=== PATIENT | male | born 1985 | race Caucasian/White ===

== ENCOUNTER 2017-09-10 19:21 | Observation (INO) | payer OTHER ==
[~2017-09-10] VITALS: Ht 172.7 cm; Wt 112.5 kg
[~2017-09-10 19:21] MED LIST: ADVI200C9 PO; AUGM875T PO; HYDR-3580 PO; HYDR12.56 PO; KCL10 PO; LIDO 2% SWISH-SWAL; METF-324 PO; VENL-37 PO
[2017-09-10 19:24] VITALS: BP 145/78; PULSE 104; RESP 16; TEMP 97.8; O2SAT 99
[2017-09-10] MEDS ORDERED: ONDANSETRON HCL 4 MG/2 ML VIAL IVP ONE (21:30)
[2017-09-10] MEDS ORDERED: SODIUM CHLORIDE 0.9% FLUSH 10 ML FLUSH IV FLUSH PRN (21:30)
--- NOTE | 2017-09-10 21:35 | PD ---
HPI Chief Complaint: Abdominal Pain Time Seen by Provider: 21:25 Travel History International Travel<30 days: No Contact w/Intl Traveler<30days: No Traveled to known affect area: No History of Present Illness HPI 32-year-old male here for evaluation of abdominal pain. The patient reports mid and epigastric abdominal pain that began this morning. Pain has progressively worsened throughout the day today and is described as cramping. Pain is currently severe and is worse with even the slightest movements. He reports having a temp of 99.7F earlier today. He has also felt nauseous but has not vomited. Last bowel movement was earlier today and was normal. No history of abdominal surgeries. He is also having some left mid and left upper quadrant discomfort described as burning. No urinary symptoms. PFSH Past Medical History Anxiety: Yes Depression: Yes Diabetes: Yes Patient Takes Glucophage: Yes (DOESN'T TAKE DAILY) Diminished Hearing: No (RINGING) Past Surgical History Oral Surgery: Yes (wisdom ) Social History Alcohol Use: Yes (occ) Tobacco Use: No Substance Use: No Allergies-Medications (Allergen,Severity, Reaction): Coded Allergies: No Known Allergies (Unverified , 09/10/17) Reported Meds & Prescriptions Reported Meds & Active Scripts Active Reported Metformin (Metformin HCl) 500 Mg Tab 500 Mg PO BIDPC Review of Systems Except as stated in HPI: all other systems reviewed are Neg Physical Exam Narrative GENERAL: Well-developed, well-nourished, overweight, no apparent distress. SKIN: Focused skin assessment warm/dry. No rash. HEAD: Atraumatic. Normocephalic. EYES: Pupils equal and round. No scleral icterus. No injection or drainage. ENT: Mucous membranes pink and moist. NECK: Trachea midline. No JVD. CARDIOVASCULAR: Regular rate and rhythm. RESPIRATORY: No accessory muscle use. Clear to auscultation. Breath sounds equal bilaterally. GASTROINTESTINAL: Abdomen soft, nondistended. Moderate periumbilical, right lower quadrant, and left lower quadrant tenderness without rebound, with mild guarding. No hernias. Normal bowel sounds. MUSCULOSKELETAL: No obvious deformities. No clubbing. No cyanosis. No edema. NEUROLOGICAL: Awake and alert. No obvious cranial nerve deficits. Motor grossly within normal limits. Normal speech. PSYCHIATRIC: Appropriate mood and affect; insight and judgment normal. Data Data Last Documented VS Vital Signs Date Time Temp Pulse Resp B/P (MAP) Pulse Ox O2 Delivery O2 Flow Rate FiO2 09/10/17 21:55 100 16 143/85 (104) 100 Room Air 09/10/17 19:24 97.8 Orders Orders Complete Blood Count With Diff (09/10/17 21:30) Comprehensive Metabolic Panel (09/10/17 21:30) Lipase (09/10/17 21:30) Prothrombin Time / Inr (Pt) (09/10/17 21:30) Act Partial Throm Time (Ptt) (09/10/17 21:30) Urinalysis - C+S If Indicated (09/10/17 21:30) Iv Access Insert/Monitor (09/10/17 21:30) Ecg Monitoring (09/10/17 21:30) Oximetry (09/10/17 21:30) Ondansetron Inj (Zofran Inj) (09/10/17 21:30) Sodium Chlor 0.9% 1000 Ml Inj (Ns 1000 M (09/10/17 21:30) Sodium Chloride 0.9% Flush (Ns Flush) (09/10/17 21:30) Ct Abd/Pel W Iv Contrast(Rout) (09/10/17 21:32) Diatrizoate Liq ( Gastroview Liq) (09/10/17 21:47) Oral Contrast - Adult (09/10/17 21:56) Iohexol 350 Inj (Omnipaque 350 Inj) (09/10/17 23:05) Piperacil-Tazo 4.5 Gm Premix (Zosyn 4.5 (09/10/17 23:45) Admit Order (Ed Use Only) (09/10/17 23:35) Diet Npo (09/11/17 Breakfast) Labs Laboratory Tests Test 09/10/17 21:35 09/10/17 21:40 Urine Color YELLOW Urine Turbidity CLEAR Urine pH 6.5 Urine Specific [place] 1.018 Urine Protein NEG mg/dL Urine Glucose (UA) NEG mg/dL Urine Ketones NEG mg/dL Urine Occult Blood NEG Urine Nitrite NEG Urine Bilirubin NEG Urine Urobilinogen LESS THAN 2.0 MG/DL Urine Leukocyte Esterase NEG Urine RBC LESS THAN 1 /hpf Urine WBC LESS THAN 1 /hpf Urine Mucus FEW /lpf Microscopic Urinalysis Comment CULT NOT INDICATED White Blood Count 13.4 TH/MM3 Red Blood Count 4.87 MIL/MM3 Hemoglobin 15.6 GM/DL Hematocrit 43.9 % Mean Corpuscular Volume 90.1 FL Mean Corpuscular Hemoglobin 31.9 PG Mean Corpuscular Hemoglobin Concent 35.5 % Red Cell Distribution Width 12.3 % Platelet Count 259 TH/MM3 Mean Platelet Volume 8.8 FL Neutrophils (%) (Auto) 65.0 % Lymphocytes (%) (Auto) 23.2 % Monocytes (%) (Auto) 9.7 % Eosinophils (%) (Auto) 1.5 % Basophils (%) (Auto) 0.6 % Neutrophils # (Auto) 8.7 TH/MM3 Lymphocytes # (Auto) 3.1 TH/MM3 Monocytes # (Auto) 1.3 TH/MM3 Eosinophils # (Auto) 0.2 TH/MM3 Basophils # (Auto) 0.1 TH/MM3 CBC Comment DIFF FINAL Differential Comment Prothrombin Time 10.7 SEC Prothromb Time International Ratio 1.0 RATIO Activated Partial Thromboplast Time 25.9 SEC Blood Urea Nitrogen 11 MG/DL Creatinine 0.86 MG/DL Random Glucose 139 MG/DL Total Protein 7.5 GM/DL Albumin 3.9 GM/DL Calcium Level 8.5 MG/DL Alkaline Phosphatase 87 U/L Aspartate Amino Transf (AST/SGOT) 14 U/L Alanine Aminotransferase (ALT/SGPT) 41 U/L Total Bilirubin 1.0 MG/DL Sodium Level 138 MEQ/L Potassium Level 3.4 MEQ/L Chloride Level 104 MEQ/L Carbon Dioxide Level 27.0 MEQ/L Anion Gap 7 MEQ/L Estimat Glomerular Filtration Rate 104 ML/MIN Lipase 102 U/L [facility] Medical Decision Making Medical Screen Exam Complete: Yes Emergency Medical Condition: Yes Differential Diagnosis Appendicitis, colitis, pancreatitis, hepatobiliary disease, UTI/cystitis Narrative Course Initial vital signs show heart rate 104, blood pressure 145/78, pulse ox 99% on room air, oral temp of 97.8 there are night. CBC shows WBC 13.4, hemoglobin 15.6, hematocrit 43.9, platelets 259. CMP is remarkable for potassium 3.4, random glucose 139, otherwise unremarkable. Lipase is 102. UA is not suggestive of UTI. CT abdomen pelvis: Findings of acute appendicitis without evidence of abscess. The patient was started on Zosyn. Case discussed with on-call general surgeon Dr. Garcia who plans to take the patient to the OR in the morning for appendectomy. Patient will be admitted to his service. Diagnosis Primary Impression: Acute appendicitis Qualified Codes: K35.3 - Acute appendicitis with localized peritonitis Admitting Information Admitting Physician Requests: Admit Chele Swift MD Sep 10, 2017 21:35
[2017-09-10] MEDS ORDERED: DIATRIZOATE MEGLUM/DIATRIZOATE SOD 9 ML CUP ONE (21:47)
[2017-09-10 21:54] LABS: AUTOMATED NEUTROPHIL # 8.7 TH/MM3 (1.8-7.7); BASOPHIL # 0.1 TH/MM3 (0-0.2); BASOPHIL % 0.6 % (0.0-2.0); EOSINOPHIL # 0.2 TH/MM3 (0-0.4); EOSINOPHIL % 1.5 % (0.0-4.0); HEMATOCRIT 43.9 % (39.0-51.0); HEMO FLAGS DIFF FINAL; LYMPH % 23.2 % (9.0-44.0); LYMPHOCYTE # 3.1 TH/MM3 (1.0-4.8); MEAN CELL VOLUME 90.1 FL (80.0-100.0); MEAN CORPUSCULAR HEMOGLOBIN 31.9 PG (27.0-34.0); MEAN CORPUSCULAR HGB CONC 35.5 % (32.0-36.0); MONO % 9.7 % (0.0-8.0); PLATELET COUNT 259 TH/MM3 (150-450); RED BLOOD COUNT 4.87 MIL/MM3 (4.50-5.90); RED CELL DISTRIBUTION WIDTH 12.3 % (11.6-17.2); WHITE BLOOD COUNT 13.4 TH/MM3 (4.0-11.0)
[2017-09-10 21:55] VITALS: BP 143/85; PULSE 100; RESP 16; O2SAT 100
[2017-09-10] MEDS: SODIUM CHLOR 0.9% 1000 ML INJ 1,000 ML IV SCH (21:55)
[2017-09-10 21:57] LABS: BLOOD, URINE NEG (NEG); COMMENT (UR) CULT NOT INDICATED; CULTURE IF INDICATED CULT NOT INDICATED; GLUCOSE,URINE NEG (NEG); KETONE, URINE NEG (NEG); MUCUS URINE FEW /lpf (OCC); NITRITE,URINE NEG (NEG); PH, URINE 6.5 (5.0-8.5); URINE COLOR YELLOW (YELLW/STRAW)
[2017-09-10] MEDS ORDERED: METF500T PO (22:07)
[2017-09-10 22:15] LABS: APTT (PATIENT) 25.9 SEC (24.3-30.1); PROTHROMBIN TIME - PATIENT 10.7 SEC (9.8-11.6)
[2017-09-10 22:17] LABS: ALT (GPT) 41 U/L (12-78); ANION GAP 7 MEQ/L (5-15); AST (GOT) 14 U/L (15-37); BLOOD UREA NITROGEN 11 MG/DL (7-18); CHLORIDE 104 MEQ/L (98-107); GLOMERULAR FILTRATION RATE 104 ML/MIN (>89); POTASSIUM 3.4 MEQ/L (3.5-5.1); SODIUM (NA) 138 MEQ/L (136-145)
[2017-09-10 22:20] LABS: ALKALINE PHOSPHATASE 87 U/L (45-117)
[2017-09-10] MEDS ORDERED: IOHEXOL 350 MG/ML 10 ML VIAL (for RAD DIAG) IVCONTRAST ONE (23:05)
--- NOTE | 2017-09-10 23:20 | RADRPT ---
EXAM DATE/TIME: 09/10/2017 23:01 [place] COMPARISON: No previous studies available for comparison. INDICATIONS : Epigastric abdominal pain. IV CONTRAST: 95 cc Omnipaque 350 (iohexol) IV ORAL CONTRAST: Prescribed oral contrast ingested. RADIATION DOSE: 16.58 CTDIvol (mGy) MEDICAL HISTORY : None SURGICAL HISTORY : None. ENCOUNTER: Initial ACUITY: 1 day PAIN SCALE: 10/10 LOCATION: Epigastric. TECHNIQUE: Volumetric scanning of the abdomen and pelvis was performed. Using automated exposure control and ad justment of the mA and/or kV according to patient size, radiation dose was kept as low as reasonably achievable to obtain optimal diagnostic quality images. DICOM format image data is available electro nically for review and comparison. FINDINGS: Examination of the lung bases demonstrates no abnormality. No pleural fluid is identified. No pulmona ry nodules are present. The liver and spleen are free of focal defects. The gallbladder and pancreas demonstrate no abnormality. The adrenal glands are normal. The kidneys demonstrate no evidence of natasha id renal mass or hydronephrosis. No free fluid or abdominal masses are identified. No para-aortic damián nopathy is seen. There are findings of acute appendicitis with inflammatory change involving the appendiceal tip but n o evidence of abscess. The bladder appears normal. No wall thickening or intraluminal masses are iden tified. No abnormally enlarged lymph nodes are identified. CONCLUSION: 1. Findings of acute appendicitis without evidence of abscess Biju Rosas MD on September 10, 2017 at 23:16 Board Certified Radiologist. This report was verified electronically.
[2017-09-10 23:45] VITALS: BP 141/77; PULSE 91; RESP 16; O2SAT 97
[2017-09-10] MEDS ORDERED: PIPERACIL-TAZO 4.5 GM PREMIX 100 ML IV ONE (23:45)
[2017-09-11] MEDS ORDERED: ACETAMINOPHEN 1000 MG/100 ML 100 ML IV ONE (00:30)
[2017-09-11] MEDS: ACETAMINOPHEN 1000 MG/100 ML 100 ML IV SCH ×3 (00:30→11:42)
[2017-09-11] MEDS ORDERED: BUPIVACAINE/EPINEPHRINE 0.5% PF 10 ML VIAL ONE (01:15)
[2017-09-11] MEDS ORDERED: BUPIVACAINE/EPINEPHRINE 0.25% 50 ML VIAL ONE (01:16)
--- NOTE | 2017-09-11 02:22 | HHI.PR ---
cc: Xiang Garcia MD Immediate Post Op Note Procedure Date: Sep 11, 2017 Pre Op Diagnosis: (1) Diabetes mellitus, type 2 (2) Acute appendicitis (3) Right lower quadrant pain (4) Abnormal CT of the abdomen Post Op Diagnosis: (1) Acute appendicitis (2) Diabetes mellitus, type 2 (3) Status post laparoscopic appendectomy (4) Right lower quadrant pain (5) Abnormal CT of the abdomen (6) Right inguinal hernia (7) Left inguinal hernia Surgeon: Xiang Garcia [employer] Supervisor(s): Referred OR record Procedure: Laparoscopic appendectomy Findings: Inflamed appendix right inguinal hernia Small left inguinal hernia Additional Information: Patient was found to have a right inguinal hernia and a small early left inguinal hernia Specimen(s) removed: Inflamed appendix Estimated blood loss: Minimal Anesthesia: General Drains: None IVF Patient to: PACU Patient Condition: Good Implant/Devices: SEE IMPLANT LOG (if applicable) Date/Time of Procedure: SEE SURGICAL CARE RECORD Xiang Garcia MD Sep 11, 2017 02:22
[2017-09-11] MEDS ORDERED: NORC5TAB PO (02:26)
[2017-09-11] MEDS ORDERED: ACETAMINOPHEN/HYDROcodone 325 MG/5 MG TAB PO PRN (02:30)
[2017-09-11] MEDS ORDERED: ONDANSETRON HCL 4 MG/2 ML VIAL IV PRN (02:30)
[2017-09-11] MEDS ORDERED: HYDROmorphone HCL PF 0.5 MG/0.5 ML SYRINGE IV PUSH PRN (02:45)
[2017-09-11] MEDS: SODIUM CHLOR 0.9% 1000 ML INJ 1,000 ML IV SCH (02:55)
[2017-09-11] MEDS ORDERED: DO NOT ADM ANY ANTICOAGULANT DRUGS PRN (03:15)
[2017-09-11 03:30] VITALS: BP 140/72; PULSE 78; RESP 16; TEMP 98.2; O2SAT 95
--- NOTE | 2017-09-11 05:13 | MH ---
cc: ELIZABETH GARCIA M.D. DATE OF ADMISSION: 09/11/2017 REASON FOR ADMISSION Acute appendicitis. HISTORY This is a pleasant 32-year-old gentleman who had some periumbilical pain sometime at work earlier today, started feeling ill and then grossly began getting worse. He then came to the emergency room. The pain kind of localized in the low pelvic area, a little more on the right side than the left side but he had tenderness on both sides with some mild nausea. He came into the emergency room where workup ensued and the diagnosis of appendicitis was entertained. CT revealed appendicitis. PAST MEDICAL HISTORY Significant for = 1. Diabetes. 2. Some anxiety, depression. PAST SURGICAL HISTORY He has never had any abdominal surgery. Had some dental work done. MEDICATIONS He takes Glucophage on an occasional basis. He takes metformin on occasion as well. SOCIAL HISTORY He works chiropractic office; he is a massage therapist. DRUG ALLERGIES No known drug allergies. PHYSICAL EXAMINATION GENERAL: On physical exam he is a pleasant gentleman. HEENT : Pupils equal round EMOI normal hearing no lesions of the nose or ear NECK: Supple. No masses CHEST: Fairly clear. No wheezes HEART: Regular rate. ABDOMEN: Slightly distended with tenderness in the bilateral lower quadrants, more on the right than the left. Decreased bowel sounds. No surgical scars, no umbilical hernia. NEUROLOGIC: he is alert, oriented, moves all extremities well. No bony deformities LABORATORY DATA He had a white count of 13, H&H of 15 and 43. Chemistry essentially normal with LFTs which were normal and potassium 3of .4. IMAGING STUDIES CT scan done earlier today and read by Dr. Rosas shows acute appendicitis. ASSESSMENT A 32-year-old gentleman with classic signs and symptomatology consistent with acute appendicitis, confirmed with radiologic examination. PLAN Laparoscopic appendectomy. This was explained to the patient in detail. He appeared to understand. We will proceed to the operating room when it has time. Elizabeth Garcia MD JDB/SSB /12:42 AM /5:01 AM GIUSEPPE
[2017-09-11] MEDS: KETOROLAC TROMETHAMINE 30 MG/ML (IVP) VIAL IV PUSH SCH ×2 (05:19→11:42)
--- NOTE | 2017-09-11 05:55 | MP ---
cc: ELIZABETH GARCIA M.D. DATE OF SURGERY 09/11/2017 PREOPERATIVE DIAGNOSIS Acute appendicitis. POSTOPERATIVE DIAGNOSIS Acute appendicitis with right inguinal hernia and early left inguinal hernia, small. PROCEDURE 1. Diagnostic laparoscopy. 2. Laparoscopic appendectomy. ANESTHESIA General. SURGEON Dr. Garcia INDICATIONS This is a pleasant 32-year-old gentleman who came into the emergency room with abdominal pain. Workup ensued. He ahd classic appendicitis confirmed with radiologic confirmation. Plans were made for above. Intraoperatively it was found that he had a right inguinal hernia and small left early inguinal hernia. PROCEDURE The patient was taken to the operating room, placed in supine position. After induction of general anesthesia, his abdomen was prepped with Betadine. We gave a time-out. He had been given preoperative antibiotics. We make an incision above the umbilicus; a Veress needle is inserted, saline load test performed. The abdomen is insufflated with 15 mmHg. A 10-mm trocar is introduced. Camera is introduced. Two other working ports are placed, a 5-mm above the pubic tubercle and a 5-mm in between the two previously placed ports. Cameras were introduced. Liver is smooth. Peritoneal surfaces are smooth. The appendix is obviously inflamed, somewhat retrocecal. The distal end of the appendix is very large. The more proximal segment is very small. We are able to take the mesentery down with harmonic scalpel, down to the base of the appendix. Two Endo-Ties of PDS are then placed around the base of the appendix. The appendix is amputated. The appendix is the EndoCatch, pulled out through the umbilical incision and passed off the field. Photos were taken. The area is irrigated copiously. Irrigating solution is removed. No other gross abnormality is seen. The omentum is draped over the appendiceal stump. We then remove all three trocars. The umbilical fascia is closed with a 0 Vicryl and the skin is closed with a 4-0 Vicryl. Steri-Strips applied. Sterile bandage applied. The patient tolerated the procedure well and had no immediate postop complications. MD SOY Rai/PETE /2:32 AM /5:46 AM
[2017-09-11 07:54] VITALS: BP 120/67; PULSE 87; RESP 18; TEMP 96.5; O2SAT 94
[2017-09-11] MEDS ORDERED: DEXAMETHASONE SOD PHOS 4 MG/ML VIAL IV ONE (08:09)
[2017-09-11] MEDS ORDERED: KETOROLAC TROMETHAMINE 30 MG/ML (IVP) VIAL IV PUSH ONE (08:09)
[2017-09-11] MEDS ORDERED: GLYCOPYRROLATE 1 MG/5 ML SYRINGE IV PUSH ONE (08:09)
[2017-09-11] MEDS ORDERED: LIDOCAINE HCL 1% PF 5 ML AMPULE OTHER ONE (08:09)
[2017-09-11] MEDS ORDERED: PROPOFOL 200 MG/20 ML AMP IV ONE (08:09)
[2017-09-11] MEDS ORDERED: LACTATED RINGER'S 1000 ML INJ 1,000 ML IV ONE (08:09)
[2017-09-11] MEDS ORDERED: ROCURONIUM INJ 50 MG/5 ML SYRINGE IV PUSH ONE (08:09)
[2017-09-11] MEDS ORDERED: SUCCINYLCHOLINE CHLORIDE 100 MG/5 ML SYRINGE IV PUSH ONE (08:09)
[2017-09-11] MEDS ORDERED: MIDAZOLAM HCL 2 MG/2 ML VIAL IV ONE (08:09)
[2017-09-11] MEDS ORDERED: NEOSTIGMINE 3 MG/3 ML SYR IV ONE (08:09)
[2017-09-11] MEDS ORDERED: ONDANSETRON HCL 4 MG/2 ML VIAL IV PUSH ONE (08:09)
[2017-09-11 12:00] VITALS: BP 135/71; PULSE 100; RESP 18; TEMP 97.6; O2SAT 94
[2017-09-11 12:42] VITALS: RESP 16
[2017-09-13] MEDS ORDERED: metFORMIN HCL 500 MG TAB PO SCH (09:00)
== END 2017-09-11 14:45 | disposition home or self-care (01) ==
LOC: NEPD 19:21 → UNDOADMIN 23:37 → NEDA 23:37 → INTOOBSV 09-11 00:40 → N06B 09-11 03:27
PROVIDERS: ADMIT Surgery; ATTEND Surgery
DX: K35.80 Unspecified acute appendicitis (principal); E11.9 Type 2 diabetes mellitus without complications; F41.9 Anxiety disorder, unspecified; F32.9 Major depressive disorder, single episode, unspecified; E66.9 Obesity, unspecified; Z68.37 Body mass index [BMI] 37.0-37.9, adult; G47.30 Sleep apnea, unspecified; K40.20 Bilateral inguinal hernia, without obstruction or gangrene, not specified as recurrent; Z79.84 Long term (current) use of oral hypoglycemic drugs
CPT/HCPCS: 00840; 44970; 74177; 80053; 81001; 82948; 83690; 85025; 85610; 85730; 88304; 96361; 96374; 96375; 96376; 99285; G0378; J0131; J0330; J1100; J1885; J2250; J2405; J2543; J2710; J3010; J7030; J7120; Q9963; Q9967